=== PATIENT | male | born 1970 | race Caucasian/White ===

== ENCOUNTER → 2018-08-31 11:49 | Outpatient (CLI) | payer BC, SELFPAY ==
[2018-08-31 15:32] LABS: HIV - WCH Non-Reactive (Nonreactive)
[2018-08-31 17:22] LABS: Chlamydia Trachomatis by PCR Negative (Negative); Neisserai gonorrhoeae by PCR Negative (Negative); Probe Check PASS; Sample Adequacy Control PASS; Specimen Processing Control PASS
[2018-09-03 03:38] LABS: Rapid Plasmin Reagin (RPR) NONREACTIVE (NONREACTIVE)
== END ==
LOC: BFHLAB 11:49
PROVIDERS: Family Provider Family Medicine; PCP Family Medicine; Visit Provider Family Medicine
DX: Z20.9 Contact with and (suspected) exposure to unspecified communicable disease (principal)
CPT/HCPCS: 36415; 86592; 86703; 87491; 87591

== ENCOUNTER → 2021-03-12 09:51 | Outpatient (CLI) | payer BC, SELFPAY ==
[2021-03-12 11:11] LABS: PSA,Total- Diagnostic 0.84 ng/mL (0.0-4.0)
[2021-03-13 10:32] LABS: PSA,Total - Annual Screen 0.84 ng/mL (0.00-4.00)
== END ==
PROVIDERS: PCP Family Medicine; Referring Provider Urology; Visit Provider Urology
DX: Z12.5 Encounter for screening for malignant neoplasm of prostate (principal)
CPT/HCPCS: 36415; 84153; G0103

== ENCOUNTER → 2022-02-04 | Outpatient (CLI) | payer BC, SELFPAY ==
[2022-02-04 12:20] LABS: Absolute Lymphocyte Count 2.02 X10^3/uL (0.83-4.51); Absolute Neutrophil Count 4.7 X10^3/uL (2.0-7.7); Basophil# 0.08 X10^3/uL; Eosinophil# 0.43 X10^3/uL; Eosinophils% 5.5 % (0-5); Hematocrit 46.2 % (40-54); Hemoglobin 15.3 g/dL (13.0-16.5); Lymphocyte # 2.02 X10^3/ul (0.83-4.51); Mean Corp Hgb Conc 33.1 g/dL (32-36); Mean Corpuscular Hgb 30.8 pg (27.0-32.0); Mean Platelet Vol. 9.4 fl (6.2-12.0); Monocyte# 0.52 X10^3/uL; Monocyte% 6.7 % (0-10); NRBC Flagged by Analyzer 0 % (0-5); Neutrophil # 4.69 X10^3/uL (2.7-7.7); Neutrophil % 60.5 % (47-70); Platelet Count 312 K/mm3 (150-450); RBC Distribution Width CV 13.3 % (11.6-14.6); RBC Distribution Width SD 45.5 fl (35.1-43.9); Red Blood Count 4.97 M/mm3 (4.6-6.2); White Blood Count 7.8 K/mm3 (4.4-11.0)
[2022-02-04 12:38] LABS: AST(SGOT) 16 U/L (15-37); Alanine Aminotransfer ALT/SGPT 32 U/L (16-61); Albumin, Serum 3.8 g/dL (3.2-5.0); Alkaline Phosphatase 76 U/L (45-117); Anion Gap 6 (5-15); BUN 19 mg/dL (7-18); BUN/Creat Ratio 15.6 RATIO (10-20); Calcium,Total 9.6 mg/dL (8.5-10.1); Chloride 107 mmol/L (98-107); Cholesterol 249 mg/dL (200); Creatinine, Serum 1.22 mg/dL (0.70-1.30); EST Glomerular Filtration Rate 67 mL/min (>60); Est Glom Filt Rate - Afr Amer 81 mL/min (>60); Globulin 3.8 g/dL (2.2-4.2); Glucose 100 mg/dL (74-106); High Density Lipoprotein 36 mg/dL; Protein, Total 7.6 g/dL (6.4-8.2); Sodium Level 141 mmol/L (136-145); Triglycerides 248 mg/dL; Very Low Density Lipoprotein 50 mg/dL (5-40)
== END | disposition home or self-care (01) ==
LOC: MTLAB 10:42
PROVIDERS: PCP Family Medicine; Referring Provider Family Medicine; Visit Provider Family Medicine
DX: Z00.00 Encounter for general adult medical examination without abnormal findings (principal)
CPT/HCPCS: 36415; 80053; 80061; 85025

== ENCOUNTER → 2022-04-30 | Outpatient (CLI) | payer BC, SELFPAY ==
--- NOTE | 2022-04-30 09:27 | RAD_ITS ---
STUDY: X-RAY - LEFT SHOULDER REASON FOR EXAM: Male, 51 years old. Left shoulder pain for 6 weeks. TECHNIQUE: 4 view(s) of the shoulder. COMPARISON: May 16, 2016. FINDINGS: Normal glenohumeral articulation. Mild arthrosis of the AC joint. Normal acromion. Normal humeral head and visualized proximal humerus. The soft tissue structures are unremarkable. Normal visualized pulmonary apex. RAD/Shoulder min 2 Views IMPRESSION: Mild arthrosis of the AC joint. No other abnormality. Electronically Signed: Best Strauss, at 12:08 EST ,
== END | disposition home or self-care (01) ==
LOC: MTRAD 09:27
PROVIDERS: PCP Family Medicine; Referring Provider Family Medicine; Visit Provider Family Medicine
DX: M25.512 Pain in left shoulder (principal)
CPT/HCPCS: 73030

== ENCOUNTER 2023-01-03 16:47 | Emergency (ER) | payer BC, SELFPAY ==
[2023-01-03 16:48] VITALS: BP 138/96; PULSE 128; RESP 16; TEMP 36.8; O2SAT 98; BMI 25.9
--- NOTE | 2023-01-03 17:08 | EX.ED.DYSGE1 ---
HPI <NAGA Gandhi - Last Filed: 01/03/23 17:26> History of Present Illness Chief Complaint: Bite Narrative Narrative: Patient was mowing the lawn yesterday when he got stung 4 times on his right leg. He thinks they were hornets. The areas become red, itchy and swollen and 2 blisters developed. He states he got more swollen after working on it all day today. Denies facial swelling or difficulty swallowing or breathing. PFSH <NAGA Gandhi - Last Filed: 01/03/23 17:26> [facility] Medical History (Updated 01/03/23 @ 17:26 by NAGA Gandhi) Arthrosis of left acromioclavicular joint High blood pressure Internal impingement of left shoulder Left shoulder pain Home Medications verapamil 120 mg 24 hr capsule,extended release 120 mg PO DAILY 05/13/22 [History Last Taken Unknown] Allergy/AdvReac Type Severity Reaction Status Date / Time Penicillins Allergy Rash Verified 01/03/23 16:50 Family History (Updated 05/13/22 @ 08:48 by Lissette Oh) Other Cancer Hypertension Myocardial infarction Surgical History (Updated 05/13/22 @ 08:47 by Lissette Oh) History of hernia surgery Social History (Updated 05/13/22 @ 08:47 by Lissette Oh) Smoking Status: Never smoker alcohol intake: never what type of physical activity do you participate in: none ROS <NAGA Gandhi - Last Filed: 01/03/23 17:26> ROS ED ROS Narrative Constitutional: Negative for fever, chills, malaise. Neuro: Negative for motor/sensory dysfunction. Skin: Positive for insect stings, swelling. EXAM <NAGA Gandhi - Last Filed: 01/03/23 17:26> Physical Exam Narrative Exam Narrative: CONST: Patient sitting in no acute distress. EYES: Normal inspection. NECK: Normal inspection. RESP: No respiratory distress, CTAB. CVS: Regular rate and rhythm, no murmur, no gallop. SKIN: Color normal, no rash, warm, dry, intact. EXTREMITIES: Redness and swelling over area of insect stings on right upper calf and right lateral ankle with 2 small tense blisters. Compartments are soft, no lymphangitic streaking, 2+ DP pulse. NEURO: Oriented x4. PSYCH: Normal affect. Const Vital Signs: 01/03/23 16:48 Temperature 98.2 F Temperature Source Temporal Pulse Rate 128 H Respiratory Rate 16 Blood Pressure 138/96 H Blood Pressure Mean 110 Pulse Ox 98 Oxygen Delivery Method Room Air <Dr. Valerio Schwartz MD - Last Filed: 01/03/23 17:20> Physical Exam Const Vital Signs: 01/03/23 16:48 Temperature 98.2 F Temperature Source Temporal Pulse Rate 128 H Respiratory Rate 16 Blood Pressure 138/96 H Blood Pressure Mean 110 Pulse Ox 98 Oxygen Delivery Method Room Air MDM <NAGA Gandhi - Last Filed: 01/03/23 17:26> [facility] Narrative Medical decision making narrative: Differential: Localized allergic reaction, anaphylaxis I have personally performed a face to face assessment of the patient and have reviewed the WILLARD Note. I performed a substantive portion of the visit including all aspects of the following. My riley findings include: History is 52-year-old male yesterday was stung by multiple yellow jackets on his right calf. He was also stung 1 to 2 weeks ago. Just complaining of right calf discomfort and swelling. Evaluated the patient with our PA. Exam is [well-appearing 52-year-old male. Vital signs stable afebrile. No distress. HEENT exam normal. No lip or tongue swelling. No trouble breathing or swallowing. Lungs clear. Heart regular rhythm no murmur. Abdomen soft nontender. Moving all 4 extremities. The right calf posteriorly has multiple bee stings. No stinger in place. There is blistering. No cellulitis. Consistent with a local allergic reaction.] Medical Decision Making [treated with ibuprofen, Benadryl at home. Ice and elevate.] Other additions or changes: [None] <Dr. Valerio Schwartz MD - Last Filed: 01/03/23 17:20> [facility] Narrative Medical decision making narrative: I have personally performed a face to face assessment of the patient and have reviewed the WILLARD Note. I performed a substantive portion of the visit including all aspects of the following. My riley findings include: History is 52-year-old male yesterday was stung by multiple yellow jackets on his right calf. He was also stung 1 to 2 weeks ago. Just complaining of right calf discomfort and swelling. Evaluated the patient with our PA. Exam is [well-appearing 52-year-old male. Vital signs stable afebrile. No distress. HEENT exam normal. No lip or tongue swelling. No trouble breathing or swallowing. Lungs clear. Heart regular rhythm no murmur. Abdomen soft nontender. Moving all 4 extremities. The right calf posteriorly has multiple bee stings. No stinger in place. There is blistering. No cellulitis. Consistent with a local allergic reaction.] Medical Decision Making [treated with ibuprofen, Benadryl at home. Ice and elevate.] Other additions or changes: [None] History & Record Review Discussion w/independent historian: Patient and Family Discharge Plan Triage Chief Complaint: Bite ED Midlevel Provider: Alyce Escalera ED Provider: Valerio Schwartz Dx/Rx/DC Orders Clinical Impression: Allergic reaction to insect sting Instructions: ED BEE STING General Allergic Rxn Prescriptions: No Action verapamil 120 mg capsule,ext rel. pellets 24 hr 120 mg PO DAILY Primary Care Provider: [facility] Referrals: [facility], [Primary Care Provider] - Activity Restrictions/Additional Instructions: Use Benadryl as needed for itching and swelling. Take Tylenol and Motrin as needed for pain. Let the blisters pop on their own and keep the area clean. Disposition Disposition: Home, Self Care Discharge Date/Time: 01/03/23 17:22
== END 2023-01-03 17:22 | disposition home or self-care (01) ==
LOC: ED 17:09
PROVIDERS: Emergency Provider Emergency Medicine; PCP Family Medicine; Visit Provider Emergency Medicine
DX: T63.441A Toxic effect of venom of bees, accidental (unintentional), initial encounter (principal); M79.89 Other specified soft tissue disorders
CPT/HCPCS: 99283

== ENCOUNTER → 2024-03-24 | Outpatient (CLI) | payer BC, SELFPAY ==
[2024-03-24 12:01] LABS: Absolute Lymphocyte Count 2.19 X10^3/uL (0.83-4.51); Absolute Neutrophil Count 4.7 X10^3/uL (2.0-7.7); Basophil# 0.09 X10^3/uL; Basophil% 1.1 % (0-1); Eosinophil# 0.38 X10^3/uL; Eosinophils% 4.7 % (0-5); Hematocrit 49.2 % (40-54); Hemoglobin 16.1 g/dL (13.0-16.5); Lymphocyte # 2.19 X10^3/ul (0.83-4.51); Lymphocyte % 27.1 % (19-41); Mean Corp Hgb Conc 32.7 g/dL (32-36); Mean Corpuscular Hgb 30.7 pg (27.0-32.0); Mean Corpuscular Volume 93.7 fL (80-94); Monocyte% 8.7 % (0-10); NRBC Flagged by Analyzer 0 % (0-5); Neutrophil % 58.2 % (47-70); Platelet Count 304 K/mm3 (150-450); RBC Distribution Width CV 13.2 % (11.6-14.6); RBC Distribution Width SD 45.4 fl (35.1-43.9); Red Blood Count 5.25 M/mm3 (4.6-6.2); White Blood Count 8.1 K/mm3 (4.4-11.0)
[2024-03-24 13:03] LABS: ALB/GLOB Ratio 1.1 RATIO (0.9-2.4); AST(SGOT) 23 U/L (15-37); Alanine Aminotransfer ALT/SGPT 31 U/L (16-61); Albumin, Serum 4.2 g/dL (3.2-5.0); Alkaline Phosphatase 79 U/L (45-117); Anion Gap 8 (5-15); BUN 16 mg/dL (7-18); BUN/Creat Ratio 14.7 RATIO (10-20); Calcium,Total 9.6 mg/dL (8.5-10.1); Chloride 107 mmol/L (98-107); Cholesterol 230 mg/dL (200); Creatinine, Serum 1.09 mg/dL (0.70-1.30); EST Glomerular Filtration Rate 76 mL/min (>60); Est Glom Filt Rate - Afr Amer 92 mL/min (>60); Globulin 3.7 g/dL (2.2-4.2); Glucose 104 mg/dL (74-106); High Density Lipoprotein 49 mg/dL; PSA,Total - Annual Screen 0.42 ng/mL (0.00-4.00); Potassium 3.9 mmol/L (3.5-5.1); Protein, Total 7.9 g/dL (6.4-8.2); Sodium Level 139 mmol/L (136-145); Triglycerides 191 mg/dL; Very Low Density Lipoprotein 38 mg/dL (5-40)
== END | disposition home or self-care (01) ==
LOC: BFHLAB 10:48
PROVIDERS: PCP Family Medicine; Referring Provider Family Medicine; Visit Provider Family Medicine
DX: Z00.00 Encounter for general adult medical examination without abnormal findings (principal); Z12.5 Encounter for screening for malignant neoplasm of prostate
CPT/HCPCS: 36415; 80053; 80061; 84153; 85025; G0103

== ENCOUNTER → 2025-04-12 | Outpatient (CLI) | payer BC, SELFPAY ==
[2025-04-12 12:21] LABS: Hematocrit 45.1 % (40-54); Hemoglobin 15.4 g/dL (13.0-16.5); Immature Granulocytes Count 0.020 X10^3/uL (0.0-0.0); Mean Corp Hgb Conc 34.1 g/dL (32-36); Mean Corpuscular Volume 92.4 fL (80-94); Mean Platelet Vol. 9.7 fl (6.2-12.0); NRBC Flagged by Analyzer 0 % (0-5); Platelet Count 253 K/mm3 (150-450); RBC Distribution Width CV 13.0 % (11.6-14.6); RBC Distribution Width SD 44.0 fl (35.1-43.9); Red Blood Count 4.88 M/mm3 (4.6-6.2); White Blood Count 7.2 K/mm3 (4.4-11.0)
[2025-04-12 13:06] LABS: AST(SGOT) 21 U/L (<=37); Alanine Aminotransfer ALT/SGPT 26 U/L (<=46); Albumin, Serum 4.6 g/dL (3.5-5.0); Alkaline Phosphatase 79 U/L (40-129); Anion Gap 10 (5-15); BUN 17 mg/dL (4-19); BUN/Creat Ratio 13.4 RATIO (10-20); Calcium,Total 9.6 mg/dL (7.6-11.0); Carbon Dioxide 22.7 mmol/L (21.0-32.0); Chloride 107 mmol/L (98-108); Cholesterol 172 mg/dL (<=200); Globulin 2.6 g/dL (2.2-4.2); Glucose 94 mg/dL (70-99); Low Density Lipoprotein Calc. 103 mg/dL; PSA,Total - Annual Screen 0.45 ng/mL (0.02-4.00); Potassium 4.2 mmol/L (3.3-5.1); Triglycerides 189 mg/dL; Very Low Density Lipoprotein 38 mg/dL (5-40); cholesterol:hdl ratio screen 4.80
== END | disposition home or self-care (01) ==
LOC: MTLAB 09:39
PROVIDERS: PCP Family Medicine; Referring Provider Family Medicine; Visit Provider Family Medicine
DX: Z00.00 Encounter for general adult medical examination without abnormal findings (principal); Z12.5 Encounter for screening for malignant neoplasm of prostate
CPT/HCPCS: 36415; 80053; 80061; 84153; 85025; G0103